=== PATIENT | male | born 1940 | race Caucasian/White ===

== ENCOUNTER 2020-09-30 04:38 | Day surgery (SDC) | payer OTHER ==
[2020-09-29 10:58] VITALS: BMI 29.8
[2020-09-30 08:14] VITALS: TEMP 97.5
[2020-09-30 09:40] VITALS: BP 135/86; PULSE 72
== END 2020-09-30 09:07 | disposition home or self-care (01) ==
LOC: JASU-ENDO 04:38
PROVIDERS: ATTEND Internal Medicine Gastroenterology
PROC: 0DBN8ZX Excision of Sigmoid Colon, Via Natural or Artificial Opening Endoscopic, Diagnostic (ICD-10-PCS; 2020-09-30)
PROC: 0DBK8ZX Excision of Ascending Colon, Via Natural or Artificial Opening Endoscopic, Diagnostic (ICD-10-PCS; principal; 2020-09-30 08:00)
DX: Z12.11 Encounter for screening for malignant neoplasm of colon (principal); D12.2 Benign neoplasm of ascending colon; D12.5 Benign neoplasm of sigmoid colon; K57.30 Diverticulosis of large intestine without perforation or abscess without bleeding
CPT/HCPCS: 88305-TC

== ENCOUNTER 2021-08-09 10:53 | Emergency (ER) | payer OTHER ==
[2021-08-09 11:31] VITALS: BMI 30.7
[2021-08-09] MEDS ORDERED: BEBTELOVIMAB (EUA) 175 MG/2 ML VIAL IVPUSH ONE (11:52)
[2021-08-09 14:34] VITALS: BP 140/86; PULSE 86; TEMP 98.7
== END 2021-08-09 14:34 | disposition home or self-care (01) ==
LOC: JER 10:53
DX: U07.1 COVID-19 (principal)
CPT/HCPCS: 99284-25; M0222; Q0222

== ENCOUNTER 2022-11-10 22:21 | Emergency (ER) | payer OTHER ==
[2022-11-10 22:32] VITALS: RESP 18; TEMP 98.1; BMI 30.7
[2022-11-10 23:06] LABS: HEMATOCRIT 42.3 % (35.4-49); HEMOGLOBIN 14.5 G/dL (11.7-16.9); MCHC 34.3 g/dl (32.0-35.9); MEAN CELL VOLUME 93.4 fl (80-96); MEAN PLT VOLUME 7.2 fl (7.5-11.1); PLATELET COUNT 290.8 10^3/uL (134-434); RBC 4.53 10^6/uL (4.00-5.60); RDW 14.1 % (11.9-15.9); WHITE BLOOD COUNT 13.6 10^3/uL (4.0-10.8)
[2022-11-10 23:13] LABS: INR 1.04 (0.83-1.09); PROTHROMBIN TIME (PATIENT) 12.1 SEC (9.7-13.0)
[2022-11-10 23:24] LABS: ALBUMIN 4.5 g/dl (3.4-5.0); BLOOD UREA NITROGEN 21.6 mg/dl (7-18); CALCIUM 9.2 mg/dl (8.5-10.1); CREATININE 1.1 mg/dl (0.6-1.3); POTASSIUM 4.6 mmol/L (3.5-5.1); SGOT/AST 16.9 U/L (15-37); SGPT/ALT 19.6 U/L (7-52); TOT PROT 6.6 g/dl (6.4-8.2)
[2022-11-10] MEDS ORDERED: ACETAMINOPHEN 1000 MG/100 ML BAG IVPB ONE (23:57)
[2022-11-11] MEDS ORDERED: ACETAMINOPHEN INJECTION 100 ML IVPB ONE (00:01)
[2022-11-11 00:06] LABS: BILIRUBIN,TOTAL 0.5 mg/dL (0.2-1)
[2022-11-11 02:55] VITALS: BP 176/82; PULSE 59
== END 2022-11-11 03:03 | disposition home or self-care (01) ==
LOC: FER 22:21
PROC: 3E033NZ Introduction of Analgesics, Hypnotics, Sedatives into Peripheral Vein, Percutaneous Approach (ICD-10-PCS; principal; 2022-11-10)
DX: R07.89 Other chest pain (principal); Z20.822 Contact with and (suspected) exposure to COVID-19
CPT/HCPCS: 0241U-QW; 36415; 71045-TC-FY; 80053; 82550; 82553; 84484; 85027; 85610; 93005; 99285-25